=== PATIENT | male | born 1995 | race Caucasian/White ===

== ENCOUNTER 2018-01-30 01:16 | Emergency (ER) | payer OTHER ==
[~2018-01-30] VITALS: Ht 180.3 cm; Wt 181.4 kg
--- OUTSIDE RECORDS SUMMARY | ~2018-01-30 | XMS | Clinical Summary ---
Demographics + + + | Address | [address] | | | [place] [address] | + + + | Home Phone | | + + + | Preferred Language | Unknown | + + + | Marital Status | Single | + + + | Mandaeism Affiliation | Unknown | + + + | Race | Unknown | + + + | Ethnic Group | Unknown | + + + Author + + + | Author | [facility] | | | and [place] | + + + | Organization | [facility] | | | and [place] | + + + | Address | Unknown | + + + | Phone | Unavailable | + + + Support + + + + + | Name | Relationship | Address | Phone | + + + + + | Ish,Latanya M | ECON | [address] | | | | | [place] [address] | | + + + + + | Chun Diaz | ECON | [address] [facility] | | | A/Neelima Alaniz | | [place] | | | | | [address] | | + + + + + Care Team Providers + +------+ + | Care Concrete Pipe Maker Name | Role | Phone | + +------+ + | No, Physician | PP | Unavailable | + +------+ + Allergies No Known Allergies Current Medications No known medications Active Problems Not on file Social History + +-------+ +--------+------+ | Tobacco Use | Types | Packs/Day | Years | Date | | | | | Used | | + +-------+ +--------+------+ | Never Smoker | | | | | + +-------+ +--------+------+ + +---+---+---+ | Smokeless Tobacco: | | | | | Never Used | | | | + +---+---+---+ + + + | Sex Assigned at | Date Recorded | | | | + + + | Not on file | | + + + Last Filed Vital Signs + + + + | Vital Sign | Reading | Time Taken | + + + + | Blood Pressure | 127/68 | 04/10/2012 1035 PDT | + + + + | Pulse | 84 | 04/10/20121034 PDT | + + + + | Temperature | 37 C (98.6 F) | 04/10/20121034 PDT | + + + + | Respiratory Rate | 16 | 04/10/20121034 PDT | + + + + | Oxygen Saturation | 97% | 04/10/20121034 PDT | + + + + | Inhaled Oxygen | - | - | | Concentration | | | + + + + | Weight | 93.8 kg (206 lb 14.4 | 04/10/20121034 PDT | | | oz) | | + + + + | Height | 167.6 cm (5' 6") | 04/10/2012 1035 PDT | + + + + | Body Mass Index | 33.39 | 04/10/20121034 PDT | + + + + Plan of Treatment + + + + + | Health Maintenance | Due Date | Last Done | Comments | + + + + + | Well Child Check | | | | | | 0 | | | + + + + + | Vaccine: HPV (1 of 3 | | | | | - Male 3-dose | 8 | | | | series) | | | | + + + + + | Vaccine: | | | | | Dtap/Tdap/Td (1 - | 6 | | | | Tdap) | | | | + + + + + | Vaccine: Influenza | | | | | (#1) | 8 | | | + + + + + Results Not on filefrom Last 3 Months Insurance +-------+--------+ +------+ + + | Payer | Benefi | Subscriber | Type | Phone | Address | | | t Plan | ID | | | | | | / | | | | | | | Group | | | | | +-------+--------+ +------+ + + | MODA | MODA | [id number] | PPO | [phone] [address] [address] | | | [employer] | | | [phone] | [place] [address] | | | [place] | | | | | | | [place] | | | | | +-------+--------+ +------+ + + + +--------+ +--------+ + + | Guarantor Name | Accoun | Relation to | Date | Phone | Billing Address | | | t Type | Patient | of | | | | | | | | | | + +--------+ +--------+ + + | NEELIMA DIAZ | Person | Mother | [birth year]05[birth year] | Home: | [address] | | | [place]sa/[place]ermit | | 1968 | [phone] | [place] [address] | | | jace | | | [phone] | | + +--------+ +--------+ + +
--- OUTSIDE RECORDS SUMMARY | ~2018-01-30 | XMS | Clinical Summary ---
Demographics + + + | Address | [address] | | | [place] [address] | + + + | Home Phone | | + + + | Preferred Language | Unknown | + + + | Marital Status | Single | + + + | Latter-Day Affiliation | Unknown | + + + | Race | Unknown | + + + | Ethnic Group | Unknown | + + + Author + + + | Author | [facility] | | | and [place] | + + + | Organization | [facility] | | | and [place] | + + + | Address | Unknown | + + + | Phone | Unavailable | + + + Support + + + + + | Name | Relationship | Address | Phone | + + + + + | Ish,Latanya M | ECON | [address] | | | | | [place] [address] | | + + + + + | Chun Diaz | ECON | [address] [facility] | | | A/Neelima Alaniz | | [place] | | | | | [address] | | + + + + + Care Team Providers + +------+ + | Care Hardware Engineer Name | Role | Phone | + [...] + + | MODA | MODA | [id number] | PPO | [phone] [address] [address] | | | [place] | | | [phone] | [place] [address] | | | [place] | | | [...] | Mother | 08[birth year]05[birth year] | Home: | [address] | | | lyssa/[place]ermit | | 1968 | [phone] | [place] [address] | | | jace | | | [phone] | | + +--------+ +--------+ + +
== END 2018-01-30 03:57 | disposition home or self-care (01) ==
LOC: ED 01:16
DX: S61.412A Laceration without foreign body of left hand, initial encounter (principal); Z23 Encounter for immunization; W26.0XXA Contact with knife, initial encounter
CPT/HCPCS: 90471; 90715; 99282

== ENCOUNTER 2021-12-20 13:03 | Inpatient (IN) | payer OTHER ==
[~2021-12-20] VITALS: Ht 180.3 cm; Wt 195.0 kg
--- NOTE | 2021-12-20 16:18 | NUR ---
ADMITTED TO CCU VIA [facility], ACCOMP BY NURSING STORE PLANNER. IS ON ROOM AIR report recieved on 26 year old male patient, that is admitted to CCU. ADMITTING DX DKA, NEW ONSET DIABETIS. PATIENT HAS HX OF PREDIABETIS,OBESITY. ON ADMIT TO ED PATIENT WITH AMS. WITH TREATMENT PATIENT NOW IS ABLE TO FOLLOW COMMANDS AND ANSWERE QUESTION. PATIENT HAS BEEN WITH N/V, DIZZINESS FOR THE PAST COUPLE OF DAYS. DENIES SHORTNESS OF BREATH, DENIES PAIN OR HEADACHE. ADMITTING BS VIA LAB-976, CREAT-2.54. RECIEVED 2 LITERS OF IVF N ER INSULIN GTT INFUSING AT 13.2, IN COLUMN 3. ADMISSION PROCESS STARTED. PATIENT MOTHER IS IN ROOM. SAT ON COMMODE TO VOID. IS UNSTEADY ON FEET. PATIENT IS DROWSY.
--- NOTE | 2021-12-20 17:00 | NUR ---
HAS BEEN NAPPING. ACCUCHECK HIGH, INSULIN GTT INCREASED TO 17.6, NOW IN COLUMN 4.
--- NOTE | 2021-12-20 18:00 | NUR ---
ACCUCHECK CONTINUES READ OVER 600. LABS DRAWN FROM LEFT AC. PATIENT HAS BEEN TAKING WATER. C/O SLIGHT NAUSEA. INSULIN GTT INCREASED TO 22 UNITS/HR. HOB ELEVATED. IVF INFUSING AT 300 ML/HR.
--- NOTE | 2021-12-20 18:20 | NUR ---
CRITICAL VALUE, GLUCOSE 696, CO2-7. AWARE.
--- NOTE | 2021-12-20 19:00 | NUR ---
ACCUCHECK-554, INSULIN GTT TO 26.4. HAS BEEN TAKING WATER WELL. SLIGHT NAUSEA AT TIMES. NO TREATMENT AT THIS TIME.
--- NOTE | 2021-12-20 19:12 | NUR ---
REPORT TO NEXT SHIFT. IVF CONTINUE AT 300 ML/HR.
--- NOTE | 2021-12-20 20:00 | NUR ---
PATIENT RESTING IN BED. VS STABLE. PATIENT DOESN'T RESPOND TO VERBAL STIMULI. PATIENT RESPONDS BREIFLY TO PAINFUL STIMULI WHEN ACCU CHECK DONE. INSULIN TITRATION PER PROTOCOL. IV FLUIDS PER ORDER, SITE ON RIGHT AC REDRESSED AND AN ARM BOARD PLACED. SITE FLUSHED EASILY AND DRAWS BACK BLOOD. PATIENT'S FAMILY AT BEDSIDE. CALL LIGHT IN REACH.
--- NOTE | 2021-12-20 23:20 | NUR ---
2299 ACCU CHECK DONE; PATIENT'S FAMILY HAS GONE HOME FOR THE NIGHT. PATIENT DOES NOT ALERT TO FINGER STICK. 2314 NOTED THAT PATIENT INCONTINENT OF URINE. LORI CARE DONE, BARRIER CREAM APPLIED. PATIENT TURNED TO REMOVE CHUCKS AND PLACE ATTEND UNDER HIM. PATIENT DOES NOT ALERT FOR THIS CARE. PATIENT HAS SOME NOISEY BREATH SOUNDS; APPEARS TO NOT BE CLEARING SECREATIONS FOLLOWING A LONG APNIC PERIOD. PATIENT DESATS TO 76% ON ROOM AIR. ORAL SUCTION DONE, HOB ELEVATED TO 45 DEGREES. RT CALLED. PATIENT RECOVERS, DOES NOT REQUIRE OXYGEN BUT CONTINUES TO BE SOMULENT. UPDATE GIVE TO BY DAV AMAYA. ORDERS FOR VBG, BIPAP AND GAMEZ RECEIVED.
--- NOTE | 2021-12-20 23:30 | NUR ---
GAMEZ PLACED BY SUPERVISOR PACKING ROOM. BIPAP PER RT. LABS DRAWN AND SENT BY THIS RN. MOTTLING NOTED ACROSS PATIENT'S ABD AND DOWN LOWER EXTREMITITES, PATIENT IS COOL TO THE TOUCH. PEDAL PULSE NOTED ADAMS. URINE SAMPLE SENT.
--- NOTE | 2021-12-21 00:30 | NUR ---
UPDATE PROVIDED TO DR.REDDY; SHULTZ IN TO SEE PATIENT.
--- NOTE | 2021-12-21 01:05 | NUR ---
REPEAT VBG SENT AND RECHECK OF POTASSIUM PER . INSULIN IN STAND-BY UNTIL LABS REDRAWN AT 0600.
--- NOTE | 2021-12-21 05:57 | NUR ---
PT WAS CODING WHEN I ARRIVED. CALLED MOM. PROVIDED PASTORAL PRESENCE. PT IS BEING TRANSFERED TO [facility]. HELPED FAMILY GET [employer] INSURANCE AND PROVIDED [facility] PACKING LIST.
--- NOTE | 2021-12-21 07:29 | NUR ---
[address] W/O CONTRAST AND CHEST XRAY. PATIENT TRANSFERED TO CT SUIT WITH THIS RN, SECURITY, APPLICATION ARCHITECT AND RT. PATIENT ON BIPAP WITH Fi02 30%. HR ELEVATED. ADEQUATE BP. DESATS WHEN LAYING FLAT FOR SCAN, RECOVERED WHEN HOB UP. UPON RETURN TO ROOM PATIENT WAS APNIC; ONLY BREATHING WITH BIPAP. PATIENT DESAT AND RT STARTED TO BAG. PATIENT HAD LARGE AMOUNT OF EMESIS AT THIS POINT. ROLLED PATIENT TO HIS SIDE AND ORAL SUCTION. EMESIS IS COFFEE GROUND. CODE CALLED. SEE CODE SHEET. PATIENT INTUBATED BY ED DOCTOR. CONTINUED TO HAVE EMESIS FROM MOUTH AND NARES. PATIENT REQUIRES LEVOFED FOR HPYOTENSION; 2L BOLUS. IN ROOM DURING THIS EVENT. PATIENT TOLERATED VENT; SEE RT NOTES. [facility] PATIENT MOVED TO 127. IN TO PLACE CENTRAL LINE WITH ASSIST FROM PACU NURSES. PLAN TO TRANSFER TO HIGH LEVEL OF CARE. PATIENT ON LEVOPHED AT 40 MCG/MIN, VASOPRESSIN 0.03 AND IVF AT 250. RESTARTED INSULIN AT 8.8 PER . LIFEFLIGHT ARRIVAL 0637; REPORT PROVIDED BY THIS RN, RT KOFFI AND . FAMILY IN TO SEE PATIENT PRIOR TO DEPARTURE. PATIENT TRANSFERED AT 0720. REPORT CALLED TO RECEIVING RN.
--- NOTE | 2021-12-21 13:16 | OR ---
[facility] [address], [place] [address] Signed DATE OF OPERATION: 12/21/2021 SURGEON: Jonathan Sahu MD PREOPERATIVE DIAGNOSES: 1. Diabetic ketoacidosis. 2. Sepsis. 3. Aspiration pneumonia. POSTOPERATIVE DIAGNOSES: 1. Diabetic ketoacidosis. 2. Sepsis. 3. Aspiration pneumonia. PROCEDURES: 1. Placement right IJ triple-lumen catheter. 2. Physician directed ultrasound. INDICATIONS: Stef is a 26-year-old obese diabetic gentleman, who came to the hospital with diabetic ketoacidosis. He was admitted to the Internal Medicine Service. He was being treated and unfortunately he vomited and aspirated. He is quite ill and quite septic. Arrangements are being made for him to be transferred to a higher center of care. I have been asked to come urgently to see him to place a central venous access. He did have two peripheral IVs in place upon my arrival. His family was here and I did talk to them briefly about placement of a central venous catheter. They understand there is risk including, but not limited to bleeding, infection, scarring, change in contour of the skin, pneumothorax requiring chest tube placement, as well as catheter fracture requiring retrieval. They had expressed understanding and wished to proceed. PROCEDURE NOTE: Stef was kept supine in his ICU bed. He is unconscious and on the ventilator at this point. His right neck and chest were prepped and draped in the usual sterile fashion. We used our ultrasound to locate the right internal jugular vein and carotid artery. We were able to watch our needle pass through the skin down into the vein. We had good dark venous nonpulsatile blood withdrawn. The wire was inserted and passed without difficulty or resistance. The tract was then dilated and the dilator curved appropriately. We then placed the triple-lumen catheter over the wire up to 15 cm. All three ports were able to draw dark venous blood and flush quite readily. The catheter was held in place at the level of skin with interrupted silk sutures. Dry plastic Electronically Signed By: JONATHAN SAHU MD 12/21/21 1316 PATIENT NAME: STEF DIAZ OPERATIVE REPORT DATE OF : [birth year] REPORT #: [id number] PHYSICIAN: JONATHAN SAHU MD PCP: LIAM MCGOWAN MD REPORT IS CONFIDENTIAL AND NOT TO BE RELEASED WITHOUT AUTHORIZATION [address] [address] Signed occlusive dressing was applied per nursing staff. Chest x-ray shows the catheter in good position without pneumothorax or other complication. He appears to have a right middle lobe aspiration pneumonia. At this point, our [facility] service is here and he is being loaded up and taken to [facility]. MD AJIT Cadena/KRISTIL /[id number] cc: Jonathan Sahu MD Copies: JONATHAN SAHU MD ~ Electronically Signed By: JONATHAN SAHU MD 12/21/21 1316 PATIENT NAME: STEF DIAZ OPERATIVE REPORT DATE OF : [birth year] REPORT #: [id number] PHYSICIAN: JONATHAN SAHU MD PCP: LIAM MCGOWAN MD REPORT IS CONFIDENTIAL AND NOT TO BE RELEASED WITHOUT AUTHORIZATION
--- NOTE | 2021-12-23 13:10 | EKG ---
[facility] [address] [facility] [place], [place] [address] Signed Suspect arm lead reversal, interpretation assumes no reversal Unusual P axis, possible ectopic atrial rhythm Anterolateral infarct , age undetermined Abnormal ECG No previous ECGs available Confirmed by NETTE AGUILAR MD ([id number]) on 12/23/2021 1:10:14 PM Electronically Signed By: NETTE AGUILAR MD 12/23/21 1310 PATIENT NAME: JEOJOON Electrocardiogram DATE OF : [birth year] PHYSICIAN: NETTE AGUILAR MD REPORT #: [id number] REPORT IS CONFIDENTIAL AND NOT TO BE RELEASED WITHOUT AUTHORIZATION
== END 2021-12-21 07:23 | disposition short-term general hospital (02) | DRG 637 ==
LOC: ED 13:03 → CCU 15:08
PROVIDERS: ADMIT Internal Medicine; ATTEND Internal Medicine
PROC: 5A12012 Performance of Cardiac Output, Single, Manual (ICD-10-PCS; principal; 2021-12-20)
PROC: 02HV33Z Insertion of Infusion Device into Superior Vena Cava, Percutaneous Approach (ICD-10-PCS; 2021-12-20)
PROC: 0BH18EZ Insertion of Endotracheal Airway into Trachea, Via Natural or Artificial Opening Endoscopic (ICD-10-PCS; 2021-12-20)
PROC: B548ZZA Ultrasonography of Superior Vena Cava, Guidance (ICD-10-PCS; 2021-12-20)
PROC: 5A09357 Assistance with Respiratory Ventilation, Less than 24 Consecutive Hours, Continuous Positive Airway Pressure (ICD-10-PCS; 2021-12-20)
PROC: 3E033XZ Introduction of Vasopressor into Peripheral Vein, Percutaneous Approach (ICD-10-PCS; 2021-12-21)
DX: E10.10 Type 1 diabetes mellitus with ketoacidosis without coma (principal); A41.9 Sepsis, unspecified organism; G93.41 Metabolic encephalopathy; J96.01 Acute respiratory failure with hypoxia; J96.02 Acute respiratory failure with hypercapnia; J69.0 Pneumonitis due to inhalation of food and vomit; G93.6 Cerebral edema; N17.9 Acute kidney failure, unspecified; Z68.44 Body mass index [BMI] 60.0-69.9, adult; R57.9 Shock, unspecified; Z20.822 Contact with and (suspected) exposure to COVID-19; E66.01 Morbid (severe) obesity due to excess calories; I10 Essential (primary) hypertension
CPT/HCPCS: 31500; 36415; 36600; 70450; 71045; 80048; 80053; 81001; 82010; 82800; 82803; 83036; 83690; 83735; 84132; 85025; 86337; 86341; 87040; 87502; 93005; 93010; 94002; 94660; 96361; 96374; 99285-25; A9270; C9113; C9803; J0171; J1650; J1815; J2543; J3480; J7030; J7121; U0003